=== PATIENT | male | born 1965 | race Caucasian/White ===

== ENCOUNTER → 2016-08-05 | Outpatient (CLI) | payer OTHER | END | disposition home or self-care (01) | LOC: RAD.S 09:00 | DX: C76.0 Malignant neoplasm of head, face and neck (principal); C09.0 Malignant neoplasm of tonsillar fossa; Z98.890 Other specified postprocedural states; R91.1 Solitary pulmonary nodule; R91.8 Other nonspecific abnormal finding of lung field ==

== ENCOUNTER → 2016-10-29 | Outpatient (CLI) | payer OTHER | END | disposition home or self-care (01) | LOC: RAD.S 09:26 | DX: C75.0 Malignant neoplasm of parathyroid gland (principal); C09.0 Malignant neoplasm of tonsillar fossa; R91.8 Other nonspecific abnormal finding of lung field; J98.11 Atelectasis; Z98.890 Other specified postprocedural states ==